=== PATIENT | female | born 1960 | race Caucasian/White ===

== ENCOUNTER 2018-11-05 22:14 | Emergency (ER) | payer SELFPAY ==
[~2018-11-05] VITALS: Ht 149.9 cm; Wt 82.6 kg
[2018-11-05 22:18] VITALS: BP 127/75
--- NOTE | 2018-11-05 22:28 | NUR ---
PT TAKEN TO BED 2
--- NOTE | 2018-11-05 22:38 | NUR ---
58 YO F BIB SON PRESENTS TO THE ED C/O "FEELING SHORT OF BREATH". PT DENIES PAIN BUT REPORTS "MY CHEST FEELS TIGHT". ACCORDING TO PT THIS EPISODE STARTED AROUND 2029. DENIES N/V, SYNCOPE, OR RADIATION OF PAIN. SKIN IS PINK, WARM, DRY. -- BREATHING EVEN, UNLABORED. SP02:99% ON RA. NO SIGNS OF RESPIRATORY DISTRESS. -- EKG: NSR PMH-- DENIES RX-- DENIES PT POSITIONED FOR COMFORT. HOB ELEVATED. SIDE RAIL UP X1. BED IN LOWEST POSITION. VSS. NO APPARENT SIGNS OF DISTRESS.
--- NOTE | 2018-11-05 23:02 | NUR ---
ERMD AT BED 2
[2018-11-05] MEDS ORDERED: ASPIRIN 81 MG TAB.CHEW PO ONE (23:05)
[2018-11-05] MEDS ORDERED: NACL 0.9% 1,000 ML IV ONE (23:05)
[2018-11-05] MEDS ORDERED: LORazepam 2 MG/ML VIAL IVP ONE (23:05)
[2018-11-05 23:32] LABS: BASOPHILS # (AUTO) 0.1 K/uL (0.00-0.22); BASOPHILS % (AUTO) 0.7 % (0.0-2.0); EOSINOPHILS # (AUTO) 0.2 K/uL (0-0.4); EOSINOPHILS % (AUTO) 2.8 % (0.0-4.0); HEMATOCRIT 39.4 % (36-48); HEMOGLOBIN 13.2 g/dL (12.0-16.0); LYMPHOCYTES # (AUTO) 2.7 K/uL (2.5-16.5); LYMPHOCYTES % (AUTO) 33.9 % (20.5-51.1); MEAN CORPUSCULAR HEMOGLOBIN 30 pg (27-31); MEAN CORPUSCULAR HGB CONC 33 g/dL (33-37); MEAN CORPUSCULAR VOLUME 89.1 fL (80-94); MONOCYTES # (AUTO) 0.6 K/uL (0.8-1.0); MONOCYTES % (AUTO) 7.8 % (1.7-9.3); NEUTROPHILS # (AUTO) 4.4 K/uL (1.8-7.7); NEUTROPHILS % (AUTO) 54.8 % (42.2-75.2); PLATELET COUNT (AUTO) 311 K/uL (140-450); RED BLOOD CELL COUNT(AUTO) 4.42 MIL/uL (4.20-5.40); RED CELL DISTRIBUTION WIDTH 13.3 % (11.6-13.7)
[2018-11-05 23:33] LABS: ANION GAP 11.5 (8-16); CARBON DIOXIDE 26.2 mmol/L (21-32); CREATININE 0.7 mg/dL (0.6-1.3); POTASSIUM 3.7 mmol/L (3.5-5.1)
[2018-11-05 23:42] LABS: ALBUMIN 3.3 g/dL (3.4-5.0); TOTAL BILIRUBIN 0.2 mg/dL (0.0-1.0)
[2018-11-05 23:55] VITALS: BP 122/74
--- NOTE | 2018-11-06 13:37 | NUR ---
Late entry. Confirmed with RN that IV fluids 0.9 NS at 100ml/hr ended at 2355
== END 2018-11-05 23:55 | disposition home or self-care (01) ==
LOC: MED 22:14
DX: F41.0 Panic disorder [episodic paroxysmal anxiety] (principal)
CPT/HCPCS: 36415; 71045; 80053; 82948; 84484; 85025; 93005; 96374; 99284; J2060; J7030; Q0092